=== PATIENT | male | born 1985 | race Hispanic/Latino ===

== ENCOUNTER 2017-04-03 21:45 | Emergency (ER) | payer MEDICAID ==
[2017-04-03 21:45] VITALS: BMI 41.5
[2017-04-03 21:54] VITALS: RESP 18; TEMP 98.1; O2SAT 98
[2017-04-03] MEDS ORDERED: Lidocaine 5% Patch TD STA (22:19)
--- NOTE | 2017-04-03 22:29 | ED PDOC ---
Arrival/HPI - General Historian: Patient, Spouse - History of Present Illness Time/Duration: < month Symptom Onset: Sudden Symptom Course: Intermittent, Worsening Quality: Aching, Stabbing, Burning Severity Level: 10 Activities at Onset: Rest, Light Context: Home - General Chief Complaint: Upper Extremity Problem/Injury Time Seen by Provider: 04/03/17 21:59 - History of Present Illness Narrative History of Present Illness (Text): 04/03/17 22:22 Mr. James is a 31 year old male with a past medical history significant for HTN , DM2, and sleep apnea who [place] to [place] [facility] with a chief complaint of neck pain. Patient states that for the past 3 weeks he has had intermittent sharp and aching pain in his neck with radiation to bilateral scapular regions with left greater than right in intensity. He reports that he has been seen by his PMD for this, diagnosed with muscle spasm and was sent home with instructions to take naproxen, ibuprofen and flexeril which have not relieved his pain. He denies any trauma or acute event at the onset of this pain and denies ever having this pain prior to 3 weeks ago. Patient denies fever, chills , night sweats, headache, changes in his vision/smell/hearing, dysphagia, chest pain, palpitations, SOB, cough, wheezing, abdominal pain, N/V, diarrhea, constipation, burning with urination, rash, or any numbness/tingling/weakness of any extremity. (NICKI COOPER) Past Medical History - Provider Review Nursing Documentation Reviewed: Yes - Travel History Have you recently traveled outside [place] w/in the past 3 mons?: No - Past History Past History: Non-Contributing - Infectious Disease Hx of Infectious Diseases: None - Tetanus Immunization Tetanus Immunization: Unknown - Cardiac Hx Cardiac Disorders: Yes Hx Hypertension: Yes Other/Comment: " MY PRIMARY DOCTOR JUST WANTS ME TO TAKE FISH OIL SUPPLEMENT- NO RX. MEDS." - Pulmonary Hx Respiratory Disorders: No Hx Sleep Apnea: Yes - Neurological Hx Neurological Disorder: No - HEENT Hx HEENT Disorder: No - Renal Hx Renal Disorder: No - Endocrine/Metabolic Hx Endocrine Disorders: No - Hematological/Oncological Hx Blood Disorders: No - Integumentary Hx Dermatological Disorder: No - Musculoskeletal/Rheumatological Hx Musculoskeletal Disorders: No - Gastrointestinal Hx Gastrointestinal Disorders: No - Genitourinary/Gynecological Hx Genitourinary Disorders: No - Psychiatric Hx Psychophysiologic Disorder: No Hx Substance Use: Yes (marijuana) - Anesthesia Hx Anesthesia: No ((LOCAL FOR DENTAL WORK ONLY)) Family/Social History - Physician Review Nursing Documentation Reviewed: Yes Family/Social History: Hypertension (Grandmother), Neoplasm/Cancer (Colon cancer in father diagnosed at age 65) Smoking Status: Smokes "vape" daily Hx Alcohol Use: Yes Frequency of alcohol use: Socially Hx Substance Use: Yes (marijuana) Allergies/Home Meds Allergies/Adverse Reactions: Allergies shellfish derived Allergy (Severe, Verified 09/06/15 14:40) ANAPHYLAXIS barley Allergy (Verified 04/03/17 21:56) RASH hazelnut Allergy (Verified 04/03/17 21:53) RASH sesame seed Allergy (Verified 04/03/17 21:53) RASH soy Allergy (Verified 04/03/17 21:53) RASH walnut Allergy (Verified 04/03/17 21:53) RASH SEAFOOD Allergy (Severe, Uncoded 09/06/15 14:40) ANAPHYLAXIS Home Medications: Home Meds Medication Instructions Recorded Confirmed [place]-3 Fatty Acids [The Medicine 1,000 mg PO QID 09/06/15 04/03/17 [employer] Fish Oil] Review of Systems - Physician Review All systems were reviewed & negative as marked: Yes - Review of Systems Constitutional: Normal, Other (denies chills). absent: Fevers, Night Sweats Eyes: Normal. absent: Vision Changes ENT: Normal, Other (Denies changes in smell). absent: Hearing Changes Respiratory: Normal. absent: SOB, Cough, Wheezing Cardiovascular: Normal. absent: Chest Pain, Palpitations Gastrointestinal: Normal. absent: Abdominal Pain, Constipation, Diarrhea, Nausea, Vomiting Genitourinary Male: Normal. absent: Dysuria Musculoskeletal: Neck Pain (bilateral radiating to bilateral shoulders L>R). absent: Normal, Arthralgias, Back Pain, Joint Swelling, Myalgias Skin: Normal. absent: Rash Neurological: Normal, Other (Denies dysphagia or numbness/tingling of any extremity). absent: Headache, Dizziness, Focal Weakness Endocrine: Normal Hemo/Lymphatic: Normal Psychiatric: Normal Physical Exam Vital Signs Reviewed: Yes Temperature: Afebrile Blood Pressure: Hypertensive Pulse: Regular Respiratory Rate: Normal Appearance: Positive for: Well-Appearing, Non-Toxic, Uncomfortable Pain Distress: Moderate Mental Status: Positive for: Alert and Oriented X 3 - Systems Exam Head: Present: Atraumatic, Normocephalic Pupils: Present: PERRL Extroacular Muscles: Present: EOMI Conjunctiva: Present: Normal Mouth: Present: Moist Mucous Membranes Pharnyx: Present: Normal. No: ERYTHEMA, EXUDATE, TONSILS ENLARGED Nose (Internal): Present: Normal Inspection. No: No Active Bleeding, Edematous , Rhinorrhea, Epistaxis Neck: Present: Meningeal Signs, MIDLINE TENDERNESS, Paraspinal Tenderness, Trachea Midline. No: Normal Range of Motion (Limited due to pain L>R), JVD, Lymphadenopathy Respiratory/Chest: Present: Clear to Auscultation, Good Air Exchange. No: Respiratory Distress, Accessory Muscle Use, Wheezes, Decreased Breath Sounds, Rales, Retracting, Rhonchi, Tachypneic, Tender to Palpation Cardiovascular: Present: Regular Rate and Rhythm, Normal S1, S2, Peripheal Pulses Present. No: Murmurs, Irregular Rhythm, Tachycardic, Bradycardic Abdomen: Present: Normal Bowel Sounds. No: Tenderness, Distention, Peritoneal Signs Back: Present: Normal Inspection. No: CVA Tenderness, Midline Tenderness, Paraspinal Tenderness Upper Extremity: Present: Normal Inspection, Normal ROM, NORMAL PULSES, Capillary Refill < 2s. No: Cyanosis, Edema Lower Extremity: Present: Normal Inspection, NORMAL PULSES, Normal ROM, Capillary Refill < 2 s. No: Edema, CALF TENDERNESS Neurological: Present: GCS=15, CN II-XII Intact, Speech Normal Skin: Present: Warm, Dry, Normal Color. No: Rashes Lymphatic: No: Cervical Adenopathy Psychiatric: Present: Alert, Oriented x 3, Normal Insight, Normal Concentration Vital Signs Temp Pulse Resp BP Pulse Ox 04/04/17 01:16 72 18 134/86 98 04/03/17 21:54 98.1 F 76 18 169/125 H 98 Medical Decision Making - Lab Interpretations I have reviewed the lab results: Yes - RAD Interpretation Delivery Sales Worker: Radiologist - EKG Interpretation Interpreted by ED Physician: Yes Type: 12 lead EKG ED Course and Treatment: Patient Seen With Resident: In agreement with resident note which contains more details about the patient. Patient was seen and evaluated with resident. Came up with plan and treatment together. (Dirk Armstrong) 04/03/17 22:33 Impression: 31 year old male with a past medical history significant for HTN, DM2, and sleep apnea who presents to the [facility] with a chief complaint of neck pain Plan: -STOP pain management protocol (PO Tylenol, IM Toradol, Lidocaine patch and PO Flexeril) -CBC, CMP and Fingerstick BS -EKG -CT cervical spine w/o contrast -Reassess and disposition Prior Visits: All results and reports from previous visits reviewed. 06/04/16: Patient was seen and evaluated for dyspnea. 04/04/17 01:14 Patient reports that pain has completely resolved with medications administered. (NICKI COOPER) - Lab Interpretations Lab Results: 04/03/17 22:44 04/03/17 23:40 Lab Results 04/03/17 23:40: Sodium 137, Potassium 3.9, Chloride 99, Carbon Dioxide 27, Anion Gap 15, BUN 11, Creatinine 0.8, Est GFR ( Amer) > 60, Est GFR (Non- Af Amer) > 60, Random Glucose 111 H, Calcium 9.5, Total Bilirubin 0.6, AST 30, ALT 57 H, Alkaline Phosphatase 61, Total Protein 7.7, Albumin 4.2, Globulin 3.5 , Albumin/Globulin Ratio 1.2 04/03/17 22:44: WBC 7.3, RBC 4.96, Hgb 14.5, Hct 42.8, MCV 86.3, MCH 29.2, MCHC 33.9, RDW 14.0, Plt Count 316, MPV 9.1, Gran % 42.2 L, Lymph % (Auto) 44.3 H, [place] % (Auto) 9.9 H, Eos % (Auto) 3.5, Baso % (Auto) 0.1, Gran # 3.09, Lymph # 3.3, [place] # 0.7 H, Eos # 0.3, Baso # 0.01 - RAD Interpretation Radiology Orders: 04/03/17 22:19 CERVICAL SPINE W/O CONTRAST [CT] Stat - EKG Interpretation EKG Interpretation (Text): 04/04/17 01:16 NSR at 80, normal intervals, no ST-T segment changes (NICKI COOPER) - Medication Orders Current Medication Orders: Discontinued Medications Acetaminophen (Tylenol 325mg Tab) 975 mg PO STAT STA Stop: 04/03/17 22:20 Last Admin: 04/03/17 22:34 Dose: 975 mg MAR Pain/Vitals Document 04/03/17 22:34 OCS (Rec: 04/03/17 22:35 [place] [id number]) Pain Reassessment Is This A Pain ReAssessment? Yes Sleep Is patient sleeping during reassessment? No Presence of Pain Presence of Pain Yes Pain Scale Used Pain Scale Used Numeric Location Pain Location Body Site Neck Description Constant Intensity 10 Scale Used Numeric Cyclobenzaprine HCl (Flexeril) 10 mg PO STAT STA Stop: 04/03/17 22:20 Last Admin: 04/03/17 22:33 Dose: 10 mg Ketorolac Tromethamine (Toradol) 60 mg IM STAT STA Stop: 04/03/17 22:20 Last Admin: 04/03/17 22:34 Dose: 60 mg MAR Pain Assessment Document 04/03/17 22:34 OCS (Rec: 04/03/17 22:[id number] Pain Reassessment Is this a pain reassessment? Yes Sleep Is patient sleeping during reassessment? No Presence of Pain Presence of Pain Yes Pain Scale Used Pain Scale Used Numeric Location Pain Location Body Site Neck Description Description Constant Pain Behavior Moaning Aggravating Factors ADL's IM Administration Charges Document 04/03/17 22:34 OCS (Rec: 04/03/17 22:[id number][address] Charges for Administration # of IM Administrations 1 Lidocaine (Lidoderm) 1 ea TD STAT STA Stop: 04/03/17 22:20 Last Admin: 04/03/17 22:33 Dose: 1 ea MAR Transdermal Patch Site Document 04/03/17 22:33 OCS (Rec: 04/03/17 22:34 [place] [id number]) Transdermal Patch Site Transdermal Patch Site Right Shoulder Disposition/Present on Arrival - Present on Arrival Any Indicators Present on Arrival: No History of DVT/PE: No History of Uncontrolled Diabetes: No Urinary Catheter: No History of Decub. Ulcer: No History Surgical Site Infection Following: None - Disposition Have Diagnosis and Disposition been Completed?: Yes Disposition Time: 02:30 Patient Plan: Discharge - Disposition Diagnosis: Hypertension, Neck pain Disposition: HOME/ ROUTINE Patient Problems: Current Active Problems Problem Status Onset Hypertension Acute Neck pain Acute Condition: IMPROVED Discharge Instructions (ExitCare): Cervical Radiculopathy (ED) Additional Instructions: Mr. James, thank you for letting us take care of you today. Your provider was Dr. Armstrong. You were treated for cervical radiculopathy. The emergency medical care you received today was directed at your acute symptoms. If you were prescribed any medication, please fill it and take as directed. It may take several days for your symptoms to resolve. Return to the Emergency Department if your symptoms worsen, do not improve, or if you have any other problems. Please contact your doctor or call one of the physicians/clinics you have been referred to that are listed on the Patient Visit Information form that is included in your discharge packet. Bring any paperwork you were given at discharge with you along with any medications you are taking to your follow up visit. Our treatment cannot replace ongoing medical care by a primary care provider (PCP) outside of the emergency department. PLEASE FOLLOW UP WITH YOUR PRIMARY CARE DOCTOR WITHIN ONE TO TWO WEEKS TO DISCUSS THE MEDICAL CONDITIONS ADDRESSED AT THIS VISIT. Thank you for allowing the [facility] team to be part of your care today. If you had an X-Ray or CT scan: A Radiologist will review the ED reading if any change in treatment is needed we will contact you. Prescriptions: Cyclobenzaprine [Cyclobenzaprine HCl] 10 mg PO TID PRN #14 tab PRN Reason: Pain, Moderate (4-7) Lidocaine 5% [Lidoderm] 1 ea TD PRN PRN #7 patch PRN Reason: Pain, Moderate (4-7) Forms: [email or web address] (Mongolian)
[2017-04-03 22:56] LABS: BASO # 0.01 K/mm3 (0.0-2.0); BASO % 0.1 % (0.0-3.0); EOS # 0.3 (0.0-0.7); EOS % 3.5 % (1.5-5.0); GRAN # 3.09 (1.4-6.5); GRAN % 42.2 % (50.0-68.0); HEMATOCRIT 42.8 % (42.0-52.0); LYMPH # 3.3 (1.2-3.4); LYMPH % 44.3 % (22.0-35.0); MEAN CELL VOLUME 86.3 fl (80.0-105.0); MEAN CORPUSCULAR HEMOGLOBIN 29.2 pg (25.0-35.0); MEAN CORPUSCULAR HGB CONC 33.9 g/dl (31.0-37.0); MEAN PLATELET VOLUME 9.1 fl (7.0-11.0); MONO # 0.7 (0.1-0.6); MONO % 9.9 % (1.0-6.0); WHITE BLOOD COUNT 7.3 10^3/ul (4.5-11.0)
[2017-04-04 00:03] LABS: ALB/GLOB RATIO 1.2 (1.1-1.8); ALKALINE PHOSPHATASE 61 U/L (38-126); ALT/SGPT 57 U/L (7-56); AST/SGOT 30 U/L (17-59); BILIRUBIN,TOTAL 0.6 mg/dL (0.2-1.3); BLOOD UREA NITROGEN 11 mg/dL (7-21); CALCIUM 9.5 mg/dL (8.4-10.5); CARBON DIOXIDE 27 mmol/L (21-33); CHLORIDE 99 mmol/L (98-107); GFR AFRICAN-AMERICAN > 60; GLUCOSE,RANDOM 111 mg/dL (70-110); POTASSIUM 3.9 mmol/L (3.6-5.0); SODIUM 137 mmol/L (132-148); TOTAL PROTEIN 7.7 g/dL (5.8-8.3)
[2017-04-04 01:25] VITALS: BP 134/86; PULSE 72
--- NOTE | 2017-04-04 01:59 | CT ---
EXAM: CT Cervical Spine Without Intravenous Contrast CLINICAL HISTORY: 31 years old, male; Pain; Neck pain TECHNIQUE: Axial computed tomography images of the cervical spine without intravenous contrast. All CT scans at this facility use one or more dose reduction techniques, viz.: automated exposure control; ma/kV adjustment per patient size (including targeted exams where dose is matched to indication; i.e. head); or iterative reconstruction technique. Coronal and sagittal reformatted images were created and reviewed. COMPARISON: No relevant prior studies available. FINDINGS: Vertebrae: No acute fracture. Reversal of cervical lordosis. Discs/spinal canal/neural foramina: Early to mild degenerative disc disease within lower cervical spine. No significant spinal stenosis. Soft tissues: Unremarkable. Lung apices: Unremarkable as visualized. IMPRESSION: 1. No fracture. 2. If neck pain persists, consider MRI for further evaluation. 3. Incidental/non-acute findings are described above.
--- NOTE | 2017-04-04 10:13 | CARD ---
APPROVED REPORT EKG Measurement Heart [id number] <Conclusion> Normal sinus rhythm with sinus arrhythmia Normal ECG
== END 2017-04-04 02:48 | disposition home or self-care (01) ==
LOC: ED 21:45
DX: I10 Essential (primary) hypertension (principal); M54.2 Cervicalgia; E11.9 Type 2 diabetes mellitus without complications; F17.290 Nicotine dependence, other tobacco product, uncomplicated
CPT/HCPCS: 72125; 80053; 82948; 85025; 93005; 96372; 99284; J1885